=== PATIENT | female | born 1965 | race Caucasian/White ===

== ENCOUNTER 2020-10-05 13:08 | Emergency (ER) | payer OTHER ==
[~2020-10-05] VITALS: Ht 144.8 cm; Wt 58.1 kg
[2020-10-05 15:16] LABS: ABSOLUTE LYMPHOCYTES 1.7 thou/uL (0.8-5.3); ABSOLUTE MONOCYTES 0.4 thou/uL (0.0-1.2); ABSOLUTE NEUTROPHILS 3.8 thou/uL (1.6-8.1); BASOPHILS 0.3 %; EOSINOPHILS 0.1 %; HEMATOCRIT 41.8 % (37.0-47.0); LYMPHOCYTES 28.1 %; MCH 30.3 pg (26.0-34.0); MCHC 33.4 g/dL (28.0-37.0); MCV 90.6 fL (80.0-100.0); MPV 9.9 fl. (7.2-11.1); NUCLEATED RBCS 0 /100WBC; PLATELET COUNT* 205 thou/uL (150-400); POLYS 64.5 %; RBC 4.62 mil/uL (4.20-5.00); WBC 5.9 thou/uL (4.0-11.0)
[2020-10-05 15:24] LABS: CALCIUM 9.8 mg/dL (8.5-10.1); CREATININE 0.8 mg/dL (0.6-1.3); POTASSIUM 4.1 mmol/L (3.5-5.1)
[2020-10-05 15:28] LABS: ALBUMIN 3.9 g/dL (3.4-5.0); TOTAL BILIRUBIN 0.3 mg/dL (<0.1-1.0); TOTAL PROTEIN 7.6 g/dL (6.4-8.2)
[2020-10-05 16:38] VITALS: BP 125/81
--- NOTE | 2020-10-06 10:09 | EKG ---
[place] [address] ELECTROCARDIOGRAM REPORT Name: JAJA REYNOSO Room: [facility]#: [id number] Admission: 10/05/20 Attend Phys: Discharge: 10/05/20 Date of : 65 Date of Service: 10/05/20 1313 Report #: [id number] THIS REPORT FOR: //name// [facility] ED Test Date: 2020-10-05 Test Time: 13:13:07 Pat Name: JAJA REYNOSO Department: Room: Gender: Twister Operator: JOSH : 1965 Requested By: Bib Ngo Order Number: [id number] MD: Luisito Greco Measurements Intervals [place] Rate: 79 P: 58 MS: 144 QRS: 26 QRSD: 85 T: 60 QT: 341 QTc: 391 Interpretive Statements Sinus rhythm Baseline wander in lead(s) V1 No previous ECG available for comparison Electronically Signed On 10-06-2020 10:09:07 [employer] by Luisito Greco [email or web address] <ELECTRONICALLY SIGNED> By: Luisito Greco MD, [facility] 10/06/20 1009 1313 12 Luisito Greco MD, FAC /EPI
== END 2020-10-05 16:39 | disposition home or self-care (01) ==
LOC: M.ERS 13:08
PROVIDERS: Emergency Medicine
DX: R07.89 Other chest pain (principal)